=== PATIENT | male | born 1960 | race Caucasian/White ===

== ENCOUNTER 2024-11-02 18:32 | Emergency (ER) | payer BC, SELFPAY ==
[2024-11-02 18:34] VITALS: BP 130/91
[2024-11-02 19:00] VITALS: BP 133/82
[2024-11-02 19:18] VITALS: BMI 29.5
[2024-11-02 19:56] LABS: Hematocrit 39.1 % (39.0-52.0); Hemoglobin 14.1 g/dL (13.0-18.0); Mean Corp Hgb Conc. 36.1 g/dL (33.0-37.0); Mean Corpuscular Volume 83.5 fL (80.0-94.0); Nucleated Red Blood Cells % 0 % (-); Platelet Count 189 10^3/uL (130-400); Red Cell Dist. Width 12.7 % (11.5-14.5)
[2024-11-02 20:00] VITALS: BP 146/84
[2024-11-02 20:13] LABS: ALT (SGPT) 38 U/L (0-50); AST (SGOT) 19 U/L (17-59); Albumin 4.1 g/dl (3.5-5.0); Alkaline Phosphatase 55 U/L (38-126); Blood Urea Nitrogen 23 mg/dl (9-20); Calcium 9.0 mg/dl (8.4-10.2); Carbon Dioxide 26 mmol/L (22-30); Chloride 101 mmol/L (98-107); Estimated Creatinine Clearance 122 ml/min; Glucose 293 mg/dl (70-99); Potassium 4.6 mmol/L (3.5-5.1); Sodium 132 mmol/L (135-145); Total Protein 6.6 g/dl (6.3-8.2); eGFR > 60.00
[2024-11-02 20:27] LABS: C-Reactive Protein 43.00 mg/L (0.0-10.00)
[2024-11-02 21:00] VITALS: BP 135/84
[2024-11-02] MEDS: DILAUDID 1 MG IV (21:34)
[2024-11-02] MEDS: NSS 1000 IV (21:34)
--- NOTE | 2024-11-02 21:37 | ED.GENMED ---
History of Present Illness
General
Chief Complaint: Post Operative Problem(s)
Source: patient
Time Seen by Provider: 11/02/24 19:22
History of Present Illness
History of Present Illness:
Note:
CHIEF COMPLAINT(S)
Concern about potential infection at the surgical site following spinal surgery.
HISTORY OF PRESENT ILLNESS
The patient is a 64-year-old male who underwent spinal surgery on December 23, involving fusion at L4 to L5 and laminectomy from L3 to L5. Starting on Monday, the patient noticed redness at the surgical site. A home nurse assessed the site and
initially was not concerned. However, by Monday, the patient developed chills, and upon consulting with the surgical team, was advised to monitor for pus. Later, pus became evident at the staple sites, prompting concerns for infection. The surgical
team then prescribed Cephalexin, an antibiotic, to manage the infection.
The patient has been experiencing post-surgical pain localized to the left hip and extending to the left knee. He reports this pain notably worsened last night. He has been having limited range of motion and relies on a walker due to incomplete
recovery. Additionally, the patient reports short-term memory issues since the surgery, which is suspected to be related to his medication.
ADDITIONAL HISTORY OBTAINED FROM SOURCES OTHER THAN THE PATIENT
According to the family, the surgical site began showing redness on Monday, with pus appearing later. The surgical team was consulted remotely, and images were sent for their review. Additionally, the patient�s family mentions he recently
experienced significant drainage onto his shirt during travel.
SOCIAL DETERMINANTS AFFECTING HEALTH
The patient experiences mobility issues necessitating the use of a walker for ambulation, potentially impacting his independence and daily functioning.
MEDICATIONS
- Cephalexin, four times a day.
- Dilaudid: taken as needed, with consideration for IV administration to increase efficacy.
- Prednisone: currently on a tapering regimen.
- Flexeril: taken for muscle spasms but effectiveness is in question.
- Acetaminophen.
REVIEW OF SYSTEMS
- General: Reports chills.
- Musculoskeletal: Pain in the left hip extending to the left knee. Limited range of motion post-surgery.
- Neurological: Short-term memory issues noted post-surgery.
- Skin: Redness and pus noted at the surgical site.
PHYSICAL EXAM
General: Alert, cooperative, and oriented to person, place, time, and situation.
Skin: Warm, dry. Mild redness and small pus pockets noted peripherally around chino without fluctuance.
Head: Normocephalic, atraumatic.
Neck: Supple, trachea midline.
Eyes, Ears, Nose, Mouth, and Throat: Moist oral mucosa.
Cardiovascular: Normal peripheral perfusion, no edema.
Respiratory: Respirations are non-labored.
Gastrointestinal: Abdomen nondistended, no tenderness reported.
Back: Incision on low back with multiple chino; there is redness surrounding the wound at the inferior 1/5 of the wound. There is small amount of serous and slightly pustulous drainage noted. The wound is intact with the chino. There is no
significant fluctuance there is mild surrounding induration.
Musculoskeletal: Limited range of motion, using a walker for ambulation.
Neurological: No focal neurological deficits observed.
Psychiatric: Appropriate mood and affect.
PROBLEM LIST
- Possible infection at the surgical site.
- Post-surgical pain in left hip and leg.
- Short-term memory issues post-surgery.
PLAN
1. Continue current antibiotic therapy with Cephalexin.
2. Consider removal of select chino to alleviate irritation and potentially improve drainage and healing.
3. Connect with the surgical team to coordinate follow-up care and assess the continuation or modification of current treatments, including whether additional interventions such as debridement are necessary.
4. Evaluate current pain management regimen and adjust as needed for efficacy and side effects, considering an IV route if needed for immediate relief.
DIFFERENTIAL DIAGNOSIS
The Differential Diagnosis includes, in no particular order and is not limited to:
- Surgical site infection
- Other skin infections such as cellulitis
- Hematoma at the surgical site
- Deep tissue infection
- Medication side effects
- Post-surgical neuropathic pain
- Venous thrombosis contributing to pain
- Localized abscess formation
- Non-infectious wound irritation
- Psychological effect of postoperative course on memory function
Disposition:
SUMMARY OF ENCOUNTER
The patient, a 64-year-old male, presented with progressive redness and drainage at the surgical site following spinal surgery, specifically laminectomy and lumbar fusion. The site remains intact with chino but shows signs of potential infection.
Past medical records show the patient recently developed hyperglycemia with a blood glucose level of 293 mg/dL and an elevated white blood cell count of 18.2 � 10^3/�L. Additionally, the patient has been on prednisone, which may have contributed to
the hyperglycemia and leukocytosis. Emergency department consultation with neurosurgery at the [facility] recommended transferring the patient for further evaluation and possible staple removal.
DISPOSITION
Transfer.
ASSESSMENT
The patient is experiencing potential surgical site infection.
MANAGEMENT OF THE PATIENTS CARE WAS DISCUSSED WITH
Discussion was held with the neurosurgery department at the [facility], which advised against further antibiotics but recommended transfer for further evaluation.
PLAN
The immediate plan is to transfer the patient to the [facility] for neurosurgical evaluation regarding the possible surgical site infection and consideration for staple removal.
INDEPENDENT REVIEW OF LABS AND INTERPRETATION OF TESTS
My independent review of blood glucose shows hyperglycemia with a blood glucose level of 293 mg/dL. My independent review of CBC indicates leukocytosis with a white blood cell count of 18.2 � 10^3/�L.
MEDICAL DECISION MAKING
1. Number and Complexity of Problems Addressed: Chronic conditions affecting care include the potential surgical site infection, hyperglycemia potentially related to prednisone use, and leukocytosis likely secondary to prednisone. Differential
diagnosis includes a surgical site infection, medication side effects, non-infectious wound irritation, and deep tissue infection.
2. Data:
Category 1:
Independent review of laboratory tests indicates hyperglycemia and leukocytosis potentially linked to prednisone.
Category 3:
Discussion of management with neurosurgical team at the [facility] regarding potential infection and surgical evaluation.
-Risk:
Prescription medication management includes considering the impact of prednisone on current symptoms. The decision to transfer and escalate care involves medium to high risk due to the possible complications of surgical site infection and
medication-induced symptoms. The complexity and risk of the presenting complaint warrant the transfer for specialized neuroassessment and care.
DIAGNOSIS
- Potential surgical site infection, ICD-10: T81.4
- Hyperglycemia, likely secondary to prednisone use, ICD-10: E11.65
- Leukocytosis, likely secondary to prednisone use, ICD-10: D72.829
Phy Exam
Physical Exam
Physical Exam:
.
Course
Orders/Labs/Results
Orders:
Orders
11/02/24 19:46
C-Reactive Protein Urgent
Comment: ADD ON
Complete Blood Count/With Diff Urgent
Comprehensive Metabolic Panel Urgent
Erythrocyte Sed Rate Urgent
Comment: ADD ON
11/02/24 19:57
Add On- LAB Urgent
Tests Added?: esr, crp
11/02/24 21:20
HYDROmorphone [Dilaudid] 1 mg IV NOW STA
11/02/24 21:26
0.9% Sodium Chloride 1000 ml [Nss] 1,000 ml IV BOLUS
Abnormal Lab Results
11/02/24
19:46
WBC 18.2 H 10^3/uL
(4.8-10.8)
RBC 4.68 L 10^6/uL
(4.70-6.10)
Abs Immat Gran (auto) 0.2 H 10^3/uL
(0-0.05)
Absolute Neuts (auto) 15.3 H 10^3/uL
(1.4-6.5)
Absolute Monos (auto) 1.3 H 10^3/uL
(0.1-0.6)
Immature Gran % 1.3 H %
(0-0.5)
Neutrophils % 83.9 H %
(42.2-75.2)
Lymphocytes % 7.4 L %
(20.5-51.1)
Sodium 132 L mmol/L
(135-145)
BUN 23 H mg/dl
(9-20)
Creatinine 0.6 L mg/dL
(0.7-1.3)
Glucose 293 H mg/dl
(70-99)
C-Reactive Protein 43.00 H mg/L
(0.0-10.00)
11/02/24 19:46
11/02/24 19:46
Vital Signs
Initial and Last Documented VS:
Initial Vital Signs
Temp Pulse Resp BP Pulse Ox
98.5 F 88 16 130/91 96
11/02/24 18:34 11/02/24 18:34 11/02/24 18:34 11/02/24 18:34 11/02/24 18:34
Last Documented Vital Signs
Temp Pulse Resp BP Pulse Ox
98.5 F 78 22 157/90 99
11/02/24 18:34 11/02/24 23:30 11/02/24 23:30 11/02/24 23:00 11/03/24 00:19
*Pulse Oximetry
SaO2: 99
Oxygen Mode of Delivery: Room air
Patient hypoxic: no
*Critical Care Note
Total Time (30-74mins, 75-104mins- exclusive of procedures): Not Applicable
ED Attending Note
-
Portions of this chart may have been created with voice recognition software.� Occasional wrong word or��sound alike� substitutions may have occurred due to the inherent limitations of voice recognition software.
Discharge Plan
Departure
Patient Disposition: Acute Care Hospital
Date of Disposition: 11/02/24
Time of Disposition: 21:38
Discharge Problem:
Postoperative wound infection
Referrals:
PRIVATE,PHYSICIAN [Family Provider, Internal Medicine]
Hospital Transfer
Other hospital: [facility]
I certify that the patient requires transfer: Yes
Discussed case with accepting physician: Jorge
Reason for transfer: specialties available and continuity of care PCP
Interventions
Interventions:
*Risk Screen - Suicide Last Done: 11/02/24 19:18
*General Assessment Last Done: 11/02/24 19:18
*Neglect/Abuse Screening Last Done: 11/02/24 19:18
*ED- Fall Risk Assessment Last Done: 11/02/24 19:18
*ED COVID-19 Vaccine History Last Done: 11/02/24 19:18
*Nursing Disposition Last Done: 11/03/24 00:19
ED-Skin Assessment Last Done: 11/02/24 19:18
Discharge Date and Time
Discharge Date/Time: 11/03/24 00:24
Print Language: [place]
[2024-11-02 22:00] VITALS: BP 138/82
[2024-11-02 23:00] VITALS: BP 157/90
== END 2024-11-03 00:24 | disposition short-term general hospital (02) ==
LOC: EMR 18:32
PROVIDERS: Emergency Medicine; EMERGENCY PHYSICIAN Emergency Medicine
DX: T81.41XA Infection following a procedure, superficial incisional surgical site, initial encounter (principal); X58.XXXA Exposure to other specified factors, initial encounter
CPT/HCPCS: 99283; 80053; 85025; 85652; 86140